=== PATIENT | male | born 1995 | race Caucasian/White ===

== ENCOUNTER 2019-05-02 10:43 | Emergency (ER) | payer OTHER ==
[~2019-05-02] VITALS: Ht 180.3 cm; Wt 80.0 kg
[2019-05-02 10:45] VITALS: BP 127/78
--- NOTE | 2019-05-02 10:59 | NUR ---
REPORT RECEIVED FROM RICARDO MENDOZA. ASSUMED CARE OF PT.
[2019-05-02] MEDS ORDERED: LIDOCAINE-MPF 1%, 5ML ONE (11:01)
[2019-05-02] MEDS ORDERED: DIPH,PERTUSS(ACELL),TET VAC/PF 0.5 ML IM-VACC ONE (11:30)
[2019-05-02] MEDS ORDERED: NEOSPORIN OINT. PKT 1 PACKET ONE (12:06)
== END 2019-05-02 12:12 | disposition home or self-care (01) ==
LOC: ED 11:50
DX: S51.812A Laceration without foreign body of left forearm, initial encounter (principal); W26.9XXA Contact with unspecified sharp object(s), initial encounter; Y93.89 Activity, other specified; Y92.69 Other specified industrial and construction area as the place of occurrence of the external cause; Y99.0 Civilian activity done for income or pay
CPT/HCPCS: 12032; 90471; 90715; 99284